=== PATIENT | male | born 1960 | race Two or more races ===

== ENCOUNTER 2024-04-08 16:55 | Emergency (ER) | payer OTHER, MEDICAID ==
[~2024-04-08] VITALS: Ht 177.8 cm; Wt 118.5 kg
[2024-04-08 17:06] VITALS: TEMP 97.3
--- NOTE | 2024-04-08 17:27 | ED.PDOC ---
GI ASSESSMENT HPI Comments 63 year old male presents to the ED with chief complaint of abdominal pain. Patient reports that he has been experiencing diffuse abdominal pain with associated symptom of nausea for the past 13 days. Patient denies any fever, chills, vomiting, diarrhea, dizziness, or headache. Chief Complaint: Abdominal Pain Time Seen by MD: 17:25 Reviewed Notes: Nurses Notes, Medications, Allergies Allergies: Coded Allergies: NO KNOWN ALLERGIES (Unverified , 04/08/24) Information Source: Patient Mode of Arrival: Ambulatory Timing: Weeks Duration: Since onset Prehospital treatment: None Quality: Aching Vomitus: None Stool: Normal Severity: Moderate Recent: None Recent Hx of: None Pain Location: Diffuse Modifying Factors: Nothing Associated sign and symptoms: Nausea, Abdominal Pain Past Medical History PAST MEDICAL HISTORY: DM, High Lipids, HTN Past Medical History (Other): Chronic back pain Surgical History: Appendectomy Family History Family History: Reviewed,noncontributory to illness Social History Smoker: Non-Smoker Alcohol: Denies ETOH Use Drugs: Denies Drug Use Lives In: Home Constitutional: denies: chills, diaphoresis, fatigue, fever, malaise, sweats, weakness, others EENTM: denies: blurred vision, double vision, ear bleeding, ear discharge, ear drainage, ear pain, ear ringing, eye pain, eye redness, hearing loss, mouth pain, mouth swelling, nasal discharge, nose bleeding, nose congestion, nose pain, photophobia, tearing, throat pain, throat swelling, voice changes, others Respiratory: denies: cough, hemoptysis, orthopnea, SOB at rest, shortness of breath, SOB with excertion, stridor, wheezing, others Cardiovascular: denies: chest pain, dizzy spells, diaphoresis, Dyspnea on exertion, edema, irregular heart beat, left arm pain, lightheadedness, palpitations, PND, syncope, others Gastrointestinal: reports: abdominal pain, nausea; denies: abdomen distended, blood streaked bowels, constipated, diarrhea, dysphagia, difficulty swallowing, hematemesis, melena, poor appetite, poor fluid intake, rectal bleeding, rectal pain, vomiting, others Genitourinary: denies: burning, dysuria, flank pain, frequency, hematuria, incontinence, penile discharge, penile sore, pain, testicle pain, testicle swelling, urgency, others Neurological: denies: dizziness, fainting, headache, left sided numbness, left sided weakness, numbness, paresthesia, pre-existing deficit, right sided numbness, right sided weakness, seizure, speech problems, tingling, tremors, weakness, others Musculoskeletal: denies: back pain, gout, joint pain, joint swelling, muscle pain, muscle stiffness, neck pain, others Integumetry: denies: bruises, change in color, change in hair/nails, dryness, laceration, lesions, lumps, rash, wounds, others Allergic/Immunocompromised: denies: Difficulty Healing, Frequent Infections, Hives, Itching, others Hematologic/Lymphatic: denies: anemia, blood clots, easy bleeding, easy bruising, swollen glands, others Endocrine: denies: excessive hunger, excessive sweating, excessive thirst, excessive urination, flushing, intolerance to cold, intolerance to heat, unexplained weight gain, unexplained weight loss, others Psychiatric: denies: anxiety, bipolar disorder, depression, hopeless, panic disorder, schizophrenia, sleepless, suicidal, others All Other Systems: Reviewed and Negative Physical Exam General Appearance: Mild Distress, Moderate Distress, Obese HEENT: Normal ENT Inspection, PERRL/EOMI Neck: Full Range of Motion, Non-Tender, Normal, Normal Inspection Respiratory: Chest Non-Tender, Lungs Clear, No Accessory Muscle Use, No Respiratory Distress, Normal Breath Sounds Cardiovascular: No Edema, No JVD, No Murmur, No Gallop, Normal Peripheral Pulses, Regular Rate/Rhythm Breast Exam: Deferred Gastrointestinal: Diffuse, Epigastric, LLQ, No Organomegaly, No Pulsatile Mass, Normal Bowel Sounds, RUQ, Soft, Tenderness Genitalia: Deferred Pelvic: Deferred Rectal: Deferred Extremities: No calf tenderness, Normal capillary refill, Normal inspection, Normal range of motion, Non-tender, No pedal edema Musculoskeletal : Apperance: Normal Neurologic: Alert, bullard operator II-XII nml as Tested, No Motor Deficits, Normal Affect, Normal Mood, No Sensory Deficits Cerebellar Function: Normal Reflexes: Normal Skin: Dry, Normal Color, Warm Peripheral Pulses: 1+ carotid (R), 1+ carotid (L) Lymphatic: No Adenopathy EKG EKG : Pulse Rate (adult): 87 Campbell: Normal Cardiac Rhythm: NSR, PVC's Hypertrophy: LVH Was a procedure done? Was a procedure done?: No GI differential Dx Differential Diagnosis: Cholangitis, Cholecystitis, Constipation, Diverticular disease, Gastroenteritis, Hernia, Inflammatory BD, Pancreatitis, UTI, Dehydration, Diabetes/ DKA, Drug toxicity, Electrolyte Imbalance, Food Poisoning, Hypovolemia, Ischemic Bowel, Mass, Anemia X-Ray, Labs, Meds, VS Vital Signs Date Time Temp Pulse Resp B/P (MAP) Pulse Ox O2 Delivery O2 Flow Rate FiO2 04/08/24 17:31 87 04/08/24 17:06 97.3 91 16 138/96 (110) 97 04/08/24 17:06 97.3 91 16 138/96 (110) 97 97.3 Lab Test 04/08/24 17:24 Range/Units White Blood Count 7.6 4.4-10.8 10^3/uL Red Blood Count 4.91 4.5-5.90 10^6/uL Hemoglobin 14.9 13.5-17.5 g/dL Hematocrit 43.0 41.0-53.0 % Mean Corpuscular Volume 87.7 80.0-100.0 fL Mean Corpuscular Hemoglobin 30.4 28.0-32.0 pg Mean Corpuscular Hemoglobin Concent 34.6 32.0-36.0 g/dL Red Cell Distribution Width 13.5 11.8-14.3 % Platelet Count 316 140-450 10^3/uL Mean Platelet Volume 7.3 6.9-10.8 fL Neutrophils (%) (Auto) 64.3 37.0-80.0 % Lymphocytes (%) (Auto) 22.9 10.0-50.0 % Monocytes (%) (Auto) 8.9 0.0-12.0 % Eosinophils (%) (Auto) 3.2 0.0-7.0 % Basophils (%) (Auto) 0.7 0.0-2.0 % Neutrophils # (Auto) 4.9 1.6-8.6 10 ^3/uL Lymphocytes # (Auto) 1.7 0.4-5.4 10 ^3/uL Monocytes # (Auto) 0.7 0-1.3 10 ^3/uL Eosinophils # (Auto) 0.2 0-0.8 10 ^3/uL Basophils # (Auto) 0.1 0-0.2 10 ^3/uL Nucleated Red Blood Cells 0.1 % Sodium Level 139 136-145 mmol/L Potassium Level 4.7 3.5-5.1 mmol/L Chloride Level 104 98-107 mmol/L Carbon Dioxide Level 29 20-31 mmol/L Anion Gap 6 5-15 Blood Urea Nitrogen 18 9-23 mg/dL Creatinine 1.27 0.700-1.30 mg/dL Glomerular Filtration Rate Calc 64 >90 mL/min BUN/Creatinine Ratio 14.2 10.0-20.0 Serum Glucose 215 H 74-106 mg/dL Lactic Acid Level 1.5 0.4-2.0 mmol/L Calcium Level 10.4 8.7-10.4 mg/dL Total Bilirubin 0.7 0.2-1.0 mg/dL Aspartate Amino Transferase (AST) 15 13-40 U/L Alanine Aminotransferase (ALT) 44 H 7-40 U/L Alkaline Phosphatase 100 46-116 U/L Troponin I High Sensitivity 11 </=54 ng/L B-Type Natriuretic Peptide 40.06 0-100 pg/mL Total Protein 7.4 5.7-8.2 g/dL Albumin 4.7 3.2-4.8 g/dL Lipase 56 H 12-53 U/L X-Ray, Labs, Meds, VS Comment Course in the emergency department eventful patient came in complaining of diffuse abdominal pain for the past 13 days patient has diabetes hypertension high cholesterol and chronic back pain Chest x-ray shows pending EKG shows normal sinus rhythm at 87 with PVCs room air LVH The rest of the lab is still pending Dr. GROVES TO FOLLOW Time of 1ST Reevaluation: 18:25 Reevaluation 1ST: Improved Patient Education/Counseling: Diagnosis, Treatment, Prognosis Family Education/Counseling: Diagnosis, Treatment, Prognosis, No Family Present Assigned to Dr. DR GROVES Change of Shift?: Yes Departure 1 Departure Time of Disposition: 18:08 Impression: Primary Impression: Abdominal pain Qualified Codes: R10.84 - Generalized abdominal pain Disposition: 30 STILL A PATIENT Condition: Fair Critical Care Note Critical Care Time?: No Stability Stability form required: No Comments PATIENT TO FOLLOW WITH DR. GROVES Heart Score Heart Score: Heart Score Response (Comments) Value History Slightly Suspicious 0 EKG Normal 0 Age 45-64 1 Risk Factors 1 or 2 risk factors 1 Troponin N/A 0 Total 2 I personally scribed for CHAYA QUINN MD ([email or web address]) on 04/08/24 at 17:27. Electronically submitted by Robert Falk ([email or web address]). CHAYA QUINN MD Apr 08, 2024 17:27
[2024-04-08 17:41] LABS: Basophils # (auto) 0.1 10 ^3/uL (0-0.2); Basophils % (auto) 0.7 % (0.0-2.0); Eosinophils # (auto) 0.2 10 ^3/uL (0-0.8); Eosinophils % (auto) 3.2 % (0.0-7.0); Hemoglobin 14.9 g/dL (13.5-17.5); Lymphocytes # (auto) 1.7 10 ^3/uL (0.4-5.4); Lymphocytes % (auto) 22.9 % (10.0-50.0); Mean Corpuscular Hemoglobin 30.4 pg (28.0-32.0); Mean Corpuscular Hgb Conc. 34.6 g/dL (32.0-36.0); Mean Corpuscular Volume 87.7 fL (80.0-100.0); Monocytes # (auto) 0.7 10 ^3/uL (0-1.3); Monocytes % (auto) 8.9 % (0.0-12.0); Neutrophils # (auto) 4.9 10 ^3/uL (1.6-8.6); Neutrophils % (auto) 64.3 % (37.0-80.0); Nucleated Red Blood Cells % 0.1 %; Platelet Count (auto) 316 10^3/uL (140-450); Red Blood Cells 4.91 10^6/uL (4.5-5.90); Red Cell Distribution Width 13.5 % (11.8-14.3); White Blood Cell 7.6 10^3/uL (4.4-10.8)
[2024-04-08 18:00] LABS: Alanine Aminotransferase 44 U/L (7-40); Albumin 4.7 g/dL (3.2-4.8); Alkaline Phosphatase 100 U/L (46-116); Anion Gap 6 (5-15); Aspartate Aminotransferase 15 U/L (13-40); BUN/Creatinine Ratio 14.2 (10.0-20.0); Bilirubin, Total 0.7 mg/dL (0.2-1.0); Blood Urea Nitrogen 18 mg/dL (9-23); Calcium 10.4 mg/dL (8.7-10.4); Carbon Dioxide 29 mmol/L (20-31); Chloride 104 mmol/L (98-107); Glucose 215 mg/dL (74-106); Lipase 56 U/L (12-53); Potassium 4.7 mmol/L (3.5-5.1); Sodium 139 mmol/L (136-145); Total Protein 7.4 g/dL (5.7-8.2)
--- NOTE | 2024-04-08 18:24 | DVH ---
Exam: CT CT AB PEL WO CON-NO ORAL OR IV History: abd pain, N Comparison Study: None available at time of dictation. TECHNIQUE: Multidetector CT of the abdomen was performed from lung bases to pubic symphysis. Imaging was performed without IV contrast. Axial, coronal and sagittal multiplanar reformats were obtained fr om the axial data set by the technologist. Radiation Dose Information: CT Dose: CTDI volume is 25.19 mGy. Dose-length product is 1423.37 mGy*cm FINDINGS: Evaluation of solid organs is limited due to lack of intravenous contrast use. Findings: Lung Bases: No acute or significant lung base finding. Normal heart size. No pleural or pericardial effusion. Liver: The liver is normal in size. No focal lesions. Gallbladder and Biliary Tree: Unremarkable Spleen: Unremarkable Pancreas: The pancreas is grossly normal in appearance. Adrenal Glands: Unremarkable Kidneys: Kidneys are grossly normal without calculi or hydronephrosis. Bilateral renal cysts Bladder: Grossly unremarkable for degree of distention. Bowel: The stomach is grossly normal in appearance. Small bowel and colon are normal in caliber and d istribution. The appendix is not visualized; Ascites: Absent Lymphadenopathy: No mesenteric, retroperitoneal or periportal lymphadenopathy. Abdominal Wall and Mesentery: Unremarkable. Vasculature: The visualized abdominal aorta is normal in size and caliber. Evaluation of abdominal a nd pelvic vessels is limited due to lack of intravenous contrast. Pelvic Organs: Unremarkable Musculoskeletal: No aggressive focal bony lesions, acute fractures or dislocation. Soft tissues: Unremarkable IMPRESSION: 1. Bilateral renal cysts 2. No calcifications in the gallbladder. 3. No nephrolithiasis or hydronephrosis. 4. No findings to suggest bowel obstruction. HS:Y Radiation optimization: All CT scans at this facility use at least one of these dose optimization damon hniques: automated exposure control mA and/or kV adjustment per patient size (includes targeted exam s where dose is matched to clinical indication) or iterative reconstruction.
[2024-04-08] MEDS ORDERED: DICY10CA PO (18:42)
[2024-04-08] MEDS ORDERED: ZOFR4T PO (18:43)
[2024-04-08] MEDS ORDERED: FAMO20TA10 PO (18:43)
[2024-04-08 20:24] VITALS: BP 149/92; PULSE 89; RESP 16; O2SAT 97
[2024-04-08] MEDS: ONDANSETRON HCL 4 MG/2 ML VIAL IV ONE (20:24)
--- NOTE | 2024-04-10 03:50 | ECG ---
[facility] Test Date: 2024-04-08 Test Time: 17:15:21 Pat Name: GIRMA SANCHEZ Department: ER Room: Gender: M Sheet Metal Worker Maintenance: : 1960 Requested By: HANANE MOJICA Order Number: [id number] Reading MD: Simone Barnes Measurements Intervals [place] Rate: 87 P: 48 NH: 149 QRS: -45 QRSD: 113 T: 25 QT: 387 QTc: 466 Interpretive Statements Sinus rhythm Ventricular premature complex Left ventricular hypertrophy Inferior infarct, old Anterior Q waves, possibly due to LVH Electronically Signed On 04-12-2024 8:18:14 PST by Simone Barnes Please click the below link to view image of tracing.
== END 2024-04-08 20:23 | disposition still patient (30) ==
LOC: ER 17:01
DX: R10.84 Generalized abdominal pain (principal); G89.29 Other chronic pain; M54.50 Low back pain, unspecified; I10 Essential (primary) hypertension; E11.9 Type 2 diabetes mellitus without complications; E78.5 Hyperlipidemia, unspecified; R06.02 Shortness of breath; Z90.49 Acquired absence of other specified parts of digestive tract
CPT/HCPCS: 36415; 74176; 80053; 83605; 83690; 83880; 84484; 85025; 93005

== ENCOUNTER 2024-10-12 12:42 | Emergency (ER) | payer OTHER, MEDICAID ==
[~2024-10-12] VITALS: Ht 177.8 cm; Wt 111.0 kg
[~2024-10-12 12:42] MED LIST: DICY10CA PO; FAMO20TA10 PO; ZOFR4T PO
[2024-10-12 14:16] VITALS: BP 140/74; PULSE 92; RESP 16; TEMP 98.7; O2SAT 96
--- NOTE | 2024-10-12 14:17 | ED.PDOC ---
History of Present Illness HPI Comments A 64 year old male with a past medical history of hypertension, hyperlipidemia, and diabetes presents to the ED with a chief complaint of indigestion medication refill onset today (10/12/24). Patient was seen at [facility] 04/08/2024 for abdominal pain, was prescribed Bentyl. Since then, patient has been taking medication, which was helping for symptoms. For the past few days patient has noticed medication is not alleviating symptoms, came to ED today requesting different medication. He noticed bloating sensation worsens after eating, last bowel movement was yesterday. Has not followed up with PCP, states he has addressed issue but PCP has not assisted him. No other symptoms or modifying factors present at this time. Denies fevers chills night sweats unintentional weight loss Denies nausea vomiting diarrhea Denies blood in the stool Denies sick contact with similar symptoms Denies new foods/medications Denies family history of GI cancer Denies urgency, frequency, hematuria Chief Complaint: High Blood Pressure Time Seen by MD: 14:00 Primary Care Provider: NONE Reviewed Notes: Nurses Notes, Medications, Allergies Allergies: Coded Allergies: NO KNOWN ALLERGIES (Unverified , 04/08/24) Home Meds Active Scripts Simethicone (Simethicone) 80 Mg Chw, 1 TAB PO Q8HR for 10 Days, #30 TAB 0 Refills Prov:JUDY ARAUJO NP 10/12/24 Bacillus Coagulans-Inulin (Probiotic 1-250 Billion-mg) 1 Cap Cap, 1 CAP PO UD for 30 Days, #30 CAP 0 Refills Prov:JUDY ARAUJO NP 10/12/24 Pantoprazole Sodium Sesquihydr (Protonix) 40 Mg Tab, 40 MG PO DAILY for 30 Days, #30 TAB 1 Refill Prov:JUDY ARAUJO NP 10/12/24 Ondansetron Odt 4MG Tab (ZOFRAN PO) 4 Mg Tb, 4 MG PO Q4HPRN PRN for 7 Days, #35 TAB ODT TAB-DISSOLVE IN MOUTH, THEN SWALLOW Prov:DANA GROVES MD 04/08/24 Famotidine (PEPCID TABLET) 20 Mg Tb, 1 TAB PO BID PRN, #60 TAB 5 Refills Prov:DANA GROVES MD 04/08/24 Dicyclomine Hcl (BENTYL CAPSULE) 10 Mg Cp, 1 CAP PO Q6HPRN for 10 Days, #40 CAP 3 Refills Prov:DANA GROVES MD 04/08/24 Information Source: Patient Mode of Arrival: Ambulatory Severity: Moderate Timing: Hours Duration: Since onset Prehospital treatment: None Medication Refill: Ran out of Medication, For: Other (Indigestion) Past Medical History PAST MEDICAL HISTORY: DM, High Lipids, HTN Surgical History: Appendectomy Family History Family History: Reviewed,noncontributory to illness Social History Smoker: Non-Smoker Alcohol: Denies ETOH Use Drugs: Denies Drug Use Lives In: Home All Other Systems: Reviewed and Negative (as per Hpi) Physical Exam General Appearance: No Apparent Distress, Normal HEENT: Normal ENT Inspection, Pharynx Normal, TMs Normal Neck: Full Range of Motion, Non-Tender, Normal, Normal Inspection Respiratory: Chest Non-Tender, Lungs Clear, No Accessory Muscle Use, No Respiratory Distress, Normal Breath Sounds Cardiovascular: No Murmur, No Gallop, Regular Rate/Rhythm Breast Exam: Deferred Gastrointestinal: No Organomegaly, Non Tender, No Pulsatile Mass, Normal Bowel Sounds, Soft Genitalia: Deferred Pelvic: Deferred Rectal: Deferred Extremities: No calf tenderness, Normal capillary refill, Normal inspection, Normal range of motion, Non-tender, No pedal edema Musculoskeletal : Apperance: Normal Neurologic: Alert, certified dietary manager II-XII nml as Tested, No Motor Deficits, Normal Affect, Normal Mood, No Sensory Deficits Cerebellar Function: Normal Reflexes: Normal Skin: Dry, Normal Color, Warm Lymphatic: No Adenopathy Was a procedure done? Was a procedure done?: No Differential Dx Considerations may include: GERD, Dyspepsia, Atypical ACS, Gastritis X-Ray, Labs, Meds, VS Vital Signs Date Time Temp Pulse Resp B/P (MAP) Pulse Ox O2 Delivery O2 Flow Rate FiO2 10/12/24 14:16 98.7 92 16 140/74 (96) 96 98.7 10/12/24 14:16 92 16 96 Room Air 10/12/24 13:03 97.6 93 16 142/68 (92) 96 97.6 Lab Test 10/12/24 14:33 Range/Units White Blood Count 7.9 4.4-10.8 10^3/uL Red Blood Count 5.05 4.5-5.90 10^6/uL Hemoglobin 15.4 13.5-17.5 g/dL Hematocrit 44.3 41.0-53.0 % Mean Corpuscular Volume 87.8 80.0-100.0 fL Mean Corpuscular Hemoglobin 30.6 28.0-32.0 pg Mean Corpuscular Hemoglobin Concent 34.8 32.0-36.0 g/dL Red Cell Distribution Width 13.3 11.8-14.3 % Platelet Count 274 140-450 10^3/uL Mean Platelet Volume 7.7 6.9-10.8 fL Neutrophils (%) (Auto) 68.1 37.0-80.0 % Lymphocytes (%) (Auto) 21.9 10.0-50.0 % Monocytes (%) (Auto) 7.5 0.0-12.0 % Eosinophils (%) (Auto) 2.1 0.0-7.0 % Basophils (%) (Auto) 0.4 0.0-2.0 % Neutrophils # (Auto) 5.4 1.6-8.6 10 ^3/uL Lymphocytes # (Auto) 1.7 0.4-5.4 10 ^3/uL Monocytes # (Auto) 0.6 0-1.3 10 ^3/uL Eosinophils # (Auto) 0.2 0-0.8 10 ^3/uL Basophils # (Auto) 0 0-0.2 10 ^3/uL Nucleated Red Blood Cells 0.1 % Sodium Level 137 136-145 mmol/L Potassium Level 4.0 3.5-5.1 mmol/L Chloride Level 101 98-107 mmol/L Carbon Dioxide Level 27 20-31 mmol/L Anion Gap 9 5-15 Blood Urea Nitrogen 17 9-23 mg/dL Creatinine 1.10 0.700-1.30 mg/dL Glomerular Filtration Rate Calc 75 >90 mL/min BUN/Creatinine Ratio 15.5 10.0-20.0 Serum Glucose 399 H 74-106 mg/dL Calcium Level 10.0 8.7-10.4 mg/dL Troponin I High Sensitivity 10 </=54 ng/L Lipase 99 H 12-53 U/L Current Medications Medications (Trade) Dose Ordered Sig/Gerald Route Start Time Stop Time Status Last Admin Pantoprazole Sodium (Protonix Tablet) 40 mg ONCE ONCE PO 10/12/24 14:15 10/12/24 14:16 DC 10/12/24 14:24 X-Ray, Labs, Meds, VS Comment A 64 year old male with a past medical history of hypertension, hyperlipidemia, and diabetes presents to the ED with a chief complaint of indigestion medication refill onset today (10/12/24). Patient arrives alert and oriented, ABC's intact, afebrile, vital signs stable, saturating well in room air Labs were ordered. CBC was ordered to exclude anemia, blood loss, or infection.BMP was ordered to exclude electrolyte abnormalities, renal failure, dehydration, hyperglycemia. Troponin was ordered to rule out myocardial infarction, Results were reviewed by me Patient was given: Protonix 40 mg PO. Tolerated medications with no adverse reaction. Patient is stable for discharge at this time. External notes reviewed. Test results and diagnostic imaging interpreted. All diagnostic findings, discharge care, education and instructions provided Follow-up with PCP in 2 to 3 days Patient verbalized understanding and agreed to treatment plan Vital signs stable, afebrile, no acute distress noted Patient ambulatory with strong steady gait Advised to return precautions for any new or worsening symptoms, return to ER immediately for re-evaluation Patient is aware that the purpose of this visit was for an acute medical emergency requiring emergent stabilization. Chronic conditions, including malignancies have not been ruled out. Patient is instructed to follow up with PCP as directed and discharge instructions for continued care and workup. If unable to arrange follow-up, patient is to return to the emergency department for reassessment. Patient (parent or legal guardian if applicable) was given verbal and written discharge instructions and acknowledges understanding. Additional MDM Review of External, Non-ED records: External records reviewed. Discussion with independent historian (EMS, family) history obtained from the patient at bedside Chronic conditions affecting care: DM, HTN, HLD Social determinants of health affecting care: none Consideration of admission (observation or admission): I considered escalation of care to admission for this patient, however given the reassuring workup, the patient is safe for outpatient management. Time of 1ST Reevaluation: 14:30 Reevaluation 1ST: Improved Patient Education/Counseling: Diagnosis, Treatment Family Education/Counseling: No Family Present Departure 1 Departure Time of Disposition: 15:19 Impression: Primary Impression: Dyspepsia Additional Impression: Hyperglycemia Disposition: 01 HOME / SELF CARE / HOMELESS Condition: Stable e-Prescriptions Simethicone (Simethicone) 80 Mg Chw 1 TAB PO Q8HR for 10 Days, #30 TAB 0 Refills Prov: JUDY ARAUJO NP 10/12/24 Bacillus Coagulans-Inulin (Probiotic 1-250 Billion-mg) 1 Cap Cap 1 CAP PO UD for 30 Days, #30 CAP 0 Refills Prov: JUDY ARAUJO NP 10/12/24 Pantoprazole Sodium Sesquihydr (Protonix) 40 Mg Tab 40 MG PO DAILY for 30 Days, #30 TAB 1 Refill Prov: JUDY ARAUJO NP 10/12/24 Critical Care Note Critical Care Time?: No Stability Stability form required: No Heart Score Heart Score: Heart Score Response (Comments) Value History N/A 0 EKG N/A 0 Age N/A 0 Risk Factors N/A 0 Troponin N/A 0 Total 0 I personally scribed for JUDY ARAUJO NP ([email or web address]) on 10/12/24 at 14:17. Electronically submitted by Yudith Mcmahan ([email or web address]). JUDY ARAUJO NP October 12, 2024 14:17
[2024-10-12] MEDS: PANTOPRAZOLE 40 MG TAB PO ONE (14:24)
[2024-10-12 14:50] LABS: Basophils # (auto) 0 10 ^3/uL (0-0.2); Basophils % (auto) 0.4 % (0.0-2.0); Eosinophils # (auto) 0.2 10 ^3/uL (0-0.8); Eosinophils % (auto) 2.1 % (0.0-7.0); Hematocrit 44.3 % (41.0-53.0); Hemoglobin 15.4 g/dL (13.5-17.5); Lymphocytes # (auto) 1.7 10 ^3/uL (0.4-5.4); Lymphocytes % (auto) 21.9 % (10.0-50.0); Mean Corpuscular Hemoglobin 30.6 pg (28.0-32.0); Mean Corpuscular Hgb Conc. 34.8 g/dL (32.0-36.0); Mean Corpuscular Volume 87.8 fL (80.0-100.0); Monocytes # (auto) 0.6 10 ^3/uL (0-1.3); Monocytes % (auto) 7.5 % (0.0-12.0); Neutrophils # (auto) 5.4 10 ^3/uL (1.6-8.6); Neutrophils % (auto) 68.1 % (37.0-80.0); Nucleated Red Blood Cells % 0.1 %; Platelet Count (auto) 274 10^3/uL (140-450); Red Blood Cells 5.05 10^6/uL (4.5-5.90); Red Cell Distribution Width 13.3 % (11.8-14.3); White Blood Cell 7.9 10^3/uL (4.4-10.8)
[2024-10-12 14:55] LABS: Chloride 101 mmol/L (98-107); Sodium 137 mmol/L (136-145)
[2024-10-12 14:56] LABS: Anion Gap 9 (5-15); Carbon Dioxide 27 mmol/L (20-31)
[2024-10-12 15:02] LABS: BUN/Creatinine Ratio 15.5 (10.0-20.0); Blood Urea Nitrogen 17 mg/dL (9-23)
[2024-10-12 15:03] LABS: Glucose 399 mg/dL (74-106); Lipase 99 U/L (12-53)
[2024-10-12] MEDS ORDERED: PANT40TA2 PO (15:19)
[2024-10-12] MEDS ORDERED: BACI1CAP5 PO (15:20)
[2024-10-12] MEDS ORDERED: SIME80CH49 PO (15:20)
== END 2024-10-12 15:35 | disposition home or self-care (01) ==
LOC: ER 12:45
DX: E11.65 Type 2 diabetes mellitus with hyperglycemia (principal); R10.13 Epigastric pain; I10 Essential (primary) hypertension; E78.5 Hyperlipidemia, unspecified; Z79.899 Other long term (current) drug therapy; Z90.49 Acquired absence of other specified parts of digestive tract
CPT/HCPCS: 36415; 80048; 83690; 84484; 85025